=== PATIENT | female | born 1975 | race Caucasian/White ===

== ENCOUNTER 2018-08-05 09:09 | Emergency (ER) | payer OTHER ==
[2018-08-05 10:50] VITALS: BP 121/74
--- NOTE | 2018-08-05 11:37 | UC ---
Respiratory Complaint HPI - HPI Summary HPI Summary: 42-year-old female presents with 3 day history of shortness of breath and progressively worsening cough. States that initial onset had some mild nasal congestion and sore throat however these have resolved. Cough is harsh and nonproductive. Complains of some bilateral chest wall pain with cough. She is tried [id number] cough suppressant as well as used her daughter's albuterol nebulizer with no relief in symptoms. Denies fever, chills, sinus pressure, chest pain, palpitations, wheezing, abdominal pain, nausea, or vomiting. She is a 1/2 PPD smoker. - History of Current Complaint Chief Complaint: UCRespiratory Stated Complaint: COUGH, CONGESTION Time Seen by Provider: 08/05/18 11:31 Hx Obtained From: Patient Hx Last Menstrual Period: 07/18/18 Onset/Duration: Gradual Onset, Lasting Days - 3 Pain Intensity: 0 Character: Cough: Nonproductive Alleviating Factors: Nothing Associated Signs And Symptoms: Positive: Dyspnea, Nasal Congestion. Negative: Fever, Chills, Wheezing, Hemoptysis, Dizziness, Sinus Discomfort - Allergies/Home Medications Allergies/Adverse Reactions: Allergies Allergy/AdvReac Type Severity Reaction Status Date / Time amoxicillin Allergy Hives Verified 08/05/18 10:45 cefaclor [From Ceclor] Allergy Hives Verified 08/05/18 10:45 clindamycin Allergy Swelling Verified 08/05/18 10:45 Penicillins Allergy Hives Verified 08/05/18 10:45 Home Medications: Home Medications Verapamil TAB* [Calan TAB*] 40 mg PO QID 08/05/18 [History Confirmed 08/05/18] PMH/Surg Hx/FS Hx/Imm Hx Cardiovascular History: Hypertension - Surgical History Surgical History: Yes Surgery Procedure, Year, and Place: c section, cold cone bx - Family History Family History: Noncontributory - Social History Occupation: Unemployed Lives: With Family Alcohol Use: None Substance Use Type: None Smoking Status (MU): Heavy Every Day Tobacco Smoker Type: Cigarettes Amount Used/How Often: 1/2ppd Length of Time of Smoking/Using Tobacco: 24 YRS Household Exposure Type: Cigarettes Review of Systems Constitutional: Negative Skin: Negative - Noncontributory Eyes: Negative ENT: Sore Throat, Nasal Discharge Respiratory: Shortness Of Breath, Cough Cardiovascular: Negative Gastrointestinal: Negative Is Patient Immunocompromised?: No All Other Systems Reviewed And Are Negative: Yes Physical Exam Triage Information Reviewed: Yes Appearance: No Pain Distress, Well-Nourished Vital Signs: Initial Vital Signs Temp 98.7 F 08/05/18 10:43 Pulse 78 08/05/18 10:43 Resp 16 08/05/18 10:43 BP 121/74 08/05/18 10:43 Pulse Ox 98 08/05/18 10:43 Vital Signs Reviewed: Yes Eyes: Positive: Conjunctiva Clear. Negative: Discharge ENT: Positive: Pharyngeal erythema - Mild with cobblestoning, TMs normal, Uvula midline. Negative: Nasal congestion, Nasal drainage, Tonsillar swelling, Tonsillar exudate, Sinus tenderness Neck: Positive: Supple, Nontender, No Lymphadenopathy Respiratory: Positive: No respiratory distress, Wheezing - Diffuse bilateral wheezing, Other: - Harsh bronchospastic cough. Negative: Crackles, Rhonchi Cardiovascular: Positive: RRR, No Murmur Abdomen Description: Positive: Nontender, No Organomegaly, Soft. Negative: Distended, Guarding Neurological: Positive: Alert Skin Exam: Normal UC Diagnostic Evaluation - Laboratory O2 Sat by Pulse Oximetry: 98 Re-Evaluation - Re-Evaluation First Eval Re-Evaluation Time: 12:10 Change: Improved Comment: Post DuoNeb patient reports breathing is easier and cough improved. She continues to have diffuse bilateral wheezing on auscultation however air exchange improved. Patient does not want to repeat nebulizer treatment as her daughter is actively in labor and would like to go. Respiratory Course/Dx - Course Course Of Treatment: 42 year old female with 3 day history of progressively worsening cough and SOB. Her exam was remarkable for bilateral diffuse wheezing and a bronchospastic cough. She was given a DuoNeb x 1 with some improvement in symptoms although she continued to have diffuse bilateral wheezing. She reports her daughter is actively in labor and does not wish to remain for serial neb treatments. Her VSS and she is in no acute distress therefore I feel it is reasonable to contnue with outpatient treatment. She has been prescribed a course of azithromycin, 5 day course of prednisone, and an albuterol inhaler PRN. She is to follow up with PCP in 5 days. Warning symptoms requiring immediate evaluation in the ED were reviewed. Patient verbalized understanding and agrees with POC. - Differential Dx/Diagnosis Differential Diagnosis/HQI/PQRI: Asthma, Bronchitis, Lower Resp Infection Provider Diagnoses: acute bronchitis, reactive airway not asthma Discharge - Sign-Out/Discharge Documenting (check all that apply): Patient Departure All imaging exams completed and their final reports reviewed: No Studies - Discharge Plan Condition: Stable Disposition: HOME Prescriptions: Albuterol HFA INHALER* [Ventolin HFA Inhaler*] 2 puff INH Q4H PRN #1 mdi PRN Reason: Sob/Wheezing Azithromyxin ASHLEY (NF) [Z-Ashley (Zithromax) 250 mg tabs #6] 2 tab PO .TODAY, THEN 1 DAILY #6 tab predniSONE TAB* [Deltasone 20 MG TAB*] 40 mg PO DAILY #10 tab Patient Education Materials: Acute Bronchitis (ED), Reactive Airways Disease ( ED) Referrals: Misha Parra [Primary Care Provider] - 5 Days Additional Instructions: Considering the new onset of wheezing I am going to treat you with an antibiotic call azithromycin for bronchitis. Take 2 tabs today then 1 tab a day for next 4 days. Start prednisone 40 mg once daily for next 5 days to help with the inflammation in your airways that is causing the wheezing. Use albuterol inhaler 2 puffs every 4-6 hours as needed for shortness of breath , wheezing, or coughing fits. Follow up with your primary care provider in 5 days for recheck. Seek immediate medical attention in the the emergency room if you develop fever greater than 100.5 F, have increased shortness of breath, wheezing that persists despite using albuterol inhaler, chest pain, your become weak or dizzy , or any worsening of symptoms. - Billing Disposition and Condition Condition: STABLE Disposition: Home
[2018-08-05] MEDS ORDERED: Albuterol/Ipratropium NEB.SOL* Albuterol 2.5 MG/Ipratropium 0.5 MG 3 ML INH ONE (11:43)
== END 2018-08-05 12:38 | disposition home or self-care (01) ==
LOC: UCCORT 09:09
DX: J20.9 Acute bronchitis, unspecified (principal); J45.909 Unspecified asthma, uncomplicated; F17.210 Nicotine dependence, cigarettes, uncomplicated; I10 Essential (primary) hypertension
CPT/HCPCS: 99212; A9270-GY; G0463